=== PATIENT | female | born 1940 | race Caucasian/White ===

== ENCOUNTER 2016-12-05 09:10 | Outpatient (CLI) | payer MEDICARE | END 2016-12-05 09:11 | disposition home or self-care (01) | DX: R16.0 Hepatomegaly, not elsewhere classified (principal); K76.89 Other specified diseases of liver ==

== ENCOUNTER 2016-12-14 07:17 | Outpatient (CLI) | payer MEDICARE ==
[2016-12-14] MEDS ORDERED: GADOBUTROL 7.5 MMOL/7.5 ML VIAL IVP ONE (08:41)
== END 2016-12-14 07:18 | disposition home or self-care (01) ==
DX: R10.11 Right upper quadrant pain (principal); K76.89 Other specified diseases of liver
CPT/HCPCS: 36415; 74183; 82565; A9585

== ENCOUNTER 2017-04-16 14:40 | Emergency (ER) | payer MEDICARE ==
[2017-04-16 14:50] VITALS: BP 161/73
[2017-04-16 15:11] LABS: BILIRUBIN,URINE NEGATIVE (NEGATIVE)
[2017-04-16 15:12] LABS: UA w/ MICROSCOPIC CHARGE YES
[2017-04-16 15:16] LABS: UR CULTURE IF IND INDICATED; WBC,URINE >25 /HPF (0-5)
[2017-04-16] MEDS ORDERED: CIPROFLOXACIN 250 MG TABLET PO STA (15:33)
[2017-04-16] MEDS ORDERED: PHENAZOPYRIDINE 100 MG TABLET PO STA (15:33)
--- NOTE | 2017-04-16 15:36 | ED Physician Documentation ---
History of Present Illness - Stated complaint Stated Complaint: FEM - Chief complaint Chief Complaint: UTI - History obtained from History obtained from: Family (Patient is a 76-year-old female with a history of hypertension and a previous UTI who presents with a 2 day history of lower urinary symptoms including dysuria, hesitancy and frequency. She denies any fever and chills and has no complaint of abdominal or flank pain. She has not had any nausea, vomiting constipation or diarrhea. She otherwise feels well. Review of systems for pertinent positives and negatives history of present illness otherwise all other systems have been reviewed and are normal) - Additonal information Additional information: Patient is a 76-year-old female with a history of hypertension and a previous UTI who presents with a 2 day history of lower urinary symptoms including dysuria, hesitancy and frequency. She denies any fever and chills and has no complaint of abdominal or flank pain. She has not had any nausea, vomiting constipation or diarrhea. She otherwise feels well. Review of systems for pertinent positives and negatives history of present illness otherwise all other systems have been reviewed and are normal Review of Systems Ten Systems: 10 systems reviewed and negative Constitutional: denies: Fever, Chills PD PAST MEDICAL HISTORY - Past Medical History Cardiovascular: Hypertension Respiratory: None Endocrine/Autoimmune: None GI: None : None HEENT: Other Psych: None Musculoskeletal: None Derm: None - Past Surgical History Past Surgical History: Yes General: Colonoscopy HEENT: Tonsil/Adenoidectomy, Other - Present Medications Home Medications: Ambulatory Orders Medication Instructions Recorded Confirmed Atenolol 50 mg PO QPM 01/07/15 07/31/15 Aspirin [Aspir 81] 81 mg PO 07/31/15 07/31/15 Finasteride 5 mg PO DAILY 07/31/15 07/31/15 Ciprofloxacin HCl [Cipro] 250 mg PO BID #14 tablet 04/16/17 Phenazopyridine HCl [Pyridium] 200 mg PO TID #9 tablet 04/16/17 - Allergies Allergies/Adverse Reactions: Allergies Allergy/AdvReac Type Severity Reaction Status Date / Time No Known Drug Allergies Allergy Unverified 04/16/17 14:49 - Social History Does the pt smoke?: No Smoking Status: Never smoker Does the pt drink ETOH?: Yes Does the pt have substance abuse?: No - Immunizations Immunizations are current?: Yes - POLST Patient has POLST: No PD ED PE NORMAL - General General: Alert and oriented X 3, No acute distress, Well developed/nourished, Other - HEENT HEENT: Atraumatic, PERRL, EOMI - Neck Neck: Supple, no meningeal sign - Cardiac Cardiac: RRR, No murmur, No gallop - Respiratory Respiratory: No respiratory distress, Clear bilaterally - Abdomen Abdomen: Normal bowel sounds, Soft, Non tender, Non distended - Back Back: No CVA TTP - Derm Derm: Normal color, Warm and dry, No rash - Neuro Neuro: Alert and oriented X 3 Results - Vitals Vitals: Vital Signs - 24 hr 04/16/17 14:48 Temperature 37 C Heart Rate 71 Respiratory 16 Rate Blood Pressure 161/73 H O2 Saturation 98 Oxygen O2 Source Room air - Labs Labs: Laboratory Tests 04/16/17 14:51 Urine Color YELLOW Urine Clarity CLOUDY Urine pH 6.0 Ur Specific [place] 1.025 Urine Protein 100 H Urine Glucose (UA) NEGATIVE Urine Ketones NEGATIVE Urine Occult Blood LARGE H Urine Nitrite NEGATIVE Urine Bilirubin NEGATIVE Urine Urobilinogen 0.2 (NORMAL) Ur Leukocyte Esterase MODERATE H Urine RBC 6-10 H Urine WBC >25 H Ur Squamous Epith Cells RARE Squamous Urine Bacteria Rare Urine Mucus Few Strands Ur Microscopic Review INDICATED Urine Culture Comments INDICATED PD MEDICAL DECISION MAKING - ED course ED course: This patient is a 76-year-old female who presents with a complaint of lower urinary symptoms for 2 days. She has no fever, chills, nausea vomiting or abdominal pain. On examination she is well-appearing older woman who does not look sick or ill she has a soft nontender abdomen and stable vital signs. Urine was checked and is consistent with a lower urinary tract infection. Clinically this patient looks well. I think oral outpatient therapy is appropriate I will put her on a lower dose of ciprofloxacin and Pyridium and have her watch her symptoms closely, increase fluids, and return if worse. Disposition: To home Clinical impression: 1. Lower urinary tract infection Departure - Departure Disposition: , Self Care Clinical Impression: Cystitis Urinary tract infection Qualifiers: Urinary tract infection type: acute cystitis Hematuria presence: with hematuria Qualified Code(s): N30.01 - Acute cystitis with hematuria Condition: Good Instructions: ED UTI Cystitis Female Follow-Up: Bernadette Peraza ARNP [Primary Care Provider] - Prescriptions: Ciprofloxacin HCl [Cipro] 250 mg PO BID #14 tablet Phenazopyridine HCl [Pyridium] 200 mg PO TID #9 tablet
[2017-04-16] MEDS ORDERED: CIPROFLOXACIN 250 MG TABLET PO ONE (15:48)
[2017-04-16] MEDS ORDERED: PHENAZOPYRIDINE 100 MG TABLET PO ONE (15:48)
== END 2017-04-16 15:56 | disposition home or self-care (01) ==
LOC: ED 14:40
DX: N30.01 Acute cystitis with hematuria (principal); I10 Essential (primary) hypertension; Z79.82 Long term (current) use of aspirin
CPT/HCPCS: 81001; 87086; 99283; A9270; 81003

== ENCOUNTER 2017-07-22 08:26 | Outpatient (CLI) | payer MEDICARE ==
--- NOTE | 2017-07-23 13:08 | Mammography Report ---
DIGITAL SCREENING MAMMOGRAM: 07/22/2017 CLINICAL INDICATION: A 77-year-old, for screening. COMPARISON: 07/2015, 05/2014, 04/2013, 03/2012, 02/2011, 01/2010. TECHNIQUE: Routine CC and MLO projections were obtained of the breasts. Bilateral laterally exaggera eduardo craniocaudal views. FINDINGS: The breasts again demonstrate heterogeneously dense fibroglandular parenchyma bilaterally. Punctate, typically benign calcifications are present. No suspicious masses, clustered microcalcific ations, or regions of architectural distortion are identified. IMPRESSION: BENIGN FINDINGS. RECOMMENDATION: ROUTINE ANNUAL SCREENING UNLESS OTHERWISE CLINICALLY INDICATED. BIRADS CATEGORY 2-BENIGN FINDINGS. STANDARD QUALIFYING STATEMENTS 1. This examination was reviewed with the aid of Computer-Aided Detection (CAD). 2. A negative or benign imaging report should not delay biopsy if clinically suspicious findings are present. Consider surgical consultation if warranted. More than 5% of cancers are not identified by i maging. 3. Dense breasts may obscure an underlying neoplasm. JOB #: [id number] EXT JOB #:[id number]
== END 2017-07-22 08:27 | disposition home or self-care (01) ==
LOC: DI 08:26
PROVIDERS: ATTEND Registered Nurse
DX: Z12.31 Encounter for screening mammogram for malignant neoplasm of breast (principal)
CPT/HCPCS: 77067

== ENCOUNTER 2017-07-22 09:14 | Outpatient (CLI) | payer MEDICARE ==
--- NOTE | 2017-07-22 12:02 | DEXA Report ---
DEXA SCAN: 07/22/2017 CLINICAL INDICATION: Postmenopausal. TECHNIQUE: Dual energy x-ray absorptiometry (DXA) was performed on a [employer] system. Regions measured are the AP spine, femoral neck, and, if needed, forearm. COMPARISON: None. In accordance with the International Society for Clinical Densitometry (ISCD) guidelines, data from previous exams may be reanalyzed using current recommendations and techniques. This is done to allow a more accurate basis for comparison with the current study. FINDINGS The data for the lumbar spine is as follows: REGION BMD (g/cm/cm) T-SCORE Z-SCORE L1 0.825 -2.5 -0.7 L2 0.958 -2.0 -0.2 L3 1.011 -1.6 0.3 L4 1.023 -1.5 0.4 TOTAL 0.966 -1.8 0.1 NOTE: All evaluable vertebrae are used for classification. The data for the hip is as follows: REGION BMD (g/cm/cm) T-SCORE Z-SCORE Neck 0.805 -1.7 0.4 TOTAL 0.810 -1.6 0.4 NOTE: The femoral neck or total proximal femur, whichever is lowest, is used for classification. IMPRESSION: THE WHO CLASSIFICATION BASED ON THE INTERNATIONAL REFERENCE STANDARD IS OSTEOPENIA. THE FRACTURE RISK IS INCREASED. RECOMMENDATION: Patients with diagnosis of osteoporosis or osteopenia should have regular bone mineral density assessment. For those eligible for Medicare, routine testing is allowed once every 2 years. Testing frequency can be increased for patients who have rapidly progressing disease or for those who are receiving medical therapy to restore bone mass. COMMENT: World Health Organization (WHO) definitions for osteoporosis and osteopenia: NORMAL BMD: T-score at -1.0 or higher, fracture risk is low. OSTEOPENIA BMD: T-score between -1.0 and -2.5, fracture risk is increased. OSTEOPOROSIS BMD: T-score at -2.5 or lower, fracture risk high. National Osteoporosis Foundation recommends: 1. Obtain adequate dietary calcium (at least 1200 mg per day) and vitamin D (400 -800 international units per day). 2. Participate, as appropriate, in regular weightbearing and muscle- strengthening exercise. 3. Avoid tobacco use and reduce alcohol and caffeine intake. 4. For more detailed information see the website at www.NOF.org. MTDD
== END 2017-07-22 09:15 | disposition home or self-care (01) ==
LOC: DI 09:14
PROVIDERS: ATTEND Registered Nurse
DX: M85.89 Other specified disorders of bone density and structure, multiple sites (principal)
CPT/HCPCS: 77080

== ENCOUNTER 2017-08-25 09:11 | Outpatient (CLI) | payer MEDICARE ==
--- NOTE | 2017-08-25 13:10 | Ultrasound Report ---
COMPLETE ABDOMINAL ULTRASOUND: 08/25/2017 CLINICAL INDICATION: Liver lesion. COMPARISON: 12/05/2016, MRI of 12/14/2016. TECHNIQUE: Real-time scanning was performed with medical device sales representative static images obtained. FINDINGS: The liver measures 15 cm. Hepatic echogenicity is heterogeneous. Multiple cysts are again seen. The lesion in the posterior right lobe of the liver has not changed significantly in size, now measuring 3.1 x 2.8 x 2.6 cm (previously 3.3 x 2.6 x 2.4 cm). No new solid liver lesion is identified . The common bile duct measures 8 mm. The gallbladder is unremarkable. The visualized pancreas is nor mal. The spleen measures 9 cm, and demonstrates normal echotexture. The kidneys are normal, with the right measuring 9.2 cm, and the left measuring 10.1 cm. The abdominal aorta is normal in caliber. The inferior vena cava is unremarkable. No free fluid is present. IMPRESSION: STABLE LESION IN THE RIGHT LOBE OF THE LIVER. NO NEW SOLID HEPATIC LESION IS PRESENT. JOB #: [id number] EXT JOB #:[id number]
== END 2017-08-25 09:12 | disposition home or self-care (01) ==
LOC: DI 09:11
PROVIDERS: ATTEND Internal Medicine Gastroenterology
DX: K76.9 Liver disease, unspecified (principal)
CPT/HCPCS: 76700

== ENCOUNTER 2018-10-20 16:52 | Outpatient (CLI) | payer MEDICARE ==
--- NOTE | 2018-10-21 11:13 | Ultrasound Report ---
Reason: LIVER LESION Procedure Date: 10/20/2018 Accession Number: [id number] / [id number] Procedure: US - Abdomen Complete CPT Code: FULL RESULT: EXAM: ABDOMEN ULTRASOUND EXAM DATE: 10/20/2018 05:13 PM. CLINICAL HISTORY: Liver lesion. COMPARISON: Abdomen complete 08/25/2017 10:38 AM. Abdomen/liver w/wo 12/14/2016 7:44 AM. TECHNIQUE: Real-time scanning was performed with static images obtained. FINDINGS: Liver: Coarse liver echotexture background. The septated left lobe of the liver lesion consistent with a septated cyst measuring 2.6 x 2.9 x 2.1 cm is again demonstrated. Scattered small cysts previously seen also noted. The known indeterminate solid right hepatic dome mass measures 2.7 x 3.2 cm (up to 3 cm on prior ultrasound and 3.2 cm on prior MRI) and is heterogeneous and echogenic by ultrasound. Right lobe of the liver measures at least 14 cm. Main portal vein flow: Hepatopetal. Gallbladder: Normal. No stones, wall thickening, or sonographic Ibarra's sign. Biliary System: Common bile duct measures 6 mm. No intrahepatic or extrahepatic ductal dilatation. Pancreas: Visualized portion is unremarkable. Kidneys: Right: 9.6 cm longitudinally. Normal. No contour-deforming mass, stones, or hydronephrosis. Left: 10.3 cm longitudinally. Normal. No contour-deforming mass, stones, or hydronephrosis. Spleen: 8.5 cm. Normal in size and echotexture. Aorta and Inferior Vena Cava: Unremarkable. Other: None. 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 Indeterminate. Redemonstration of liver cysts, felt to be benign. RADIA
== END 2018-10-20 16:53 | disposition home or self-care (01) ==
LOC: DI 16:52
PROVIDERS: ATTEND Internal Medicine Gastroenterology
DX: K76.9 Liver disease, unspecified (principal); K76.89 Other specified diseases of liver
CPT/HCPCS: 76700

== ENCOUNTER 2018-10-24 12:25 | Outpatient (CLI) | payer MEDICARE ==
[2018-10-24 19:12] LABS: ALBUMIN 4.1 g/dL (3.2-5.5); BILIRUBIN,DIRECT 0.1 mg/dL (0.1-0.5); BILIRUBIN,TOTAL 0.7 mg/dL (0.2-1.0); TOTAL PROTEIN 6.1 g/dL (6.7-8.2)
== END 2018-10-24 12:26 | disposition home or self-care (01) ==
LOC: LAB.F 12:25
PROVIDERS: ATTEND Internal Medicine Gastroenterology
DX: K76.9 Liver disease, unspecified (principal)
CPT/HCPCS: 36415; 80076

== ENCOUNTER 2019-05-17 07:00 | Emergency (ER) | payer MEDICARE ==
[2019-05-17 07:08] VITALS: BP 157/82
--- NOTE | 2019-05-17 07:10 | ED Physician Documentation ---
History of Present Illness - Stated complaint Stated Complaint: FEMALE - Chief complaint Chief Complaint: UTI - History obtained from History obtained from: Patient - History of Present Illness Timing: Yesterday - Additonal information Additional information: Patient is a 78-year-old female presenting with concern for recurrence of UTI that began last night. Patient reports dysuria, frequency, urgency, and incomplete emptying. Patient denies vomiting, abdominal pain, back pain, fever, or other complaints. Patient does have history of bowel incontinence which happened several days ago and she believes this was likely the cause of her new UTI symptoms. No other improving or worsening factors noted. Review of Systems Constitutional: denies: Fever GI: denies: Abdominal Pain, Nausea, Vomiting, Constipation, Diarrhea : reports: Dysuria, Frequency, Hesitancy, Unable to Void. denies: Hematuria Musculoskeletal: denies: Back pain PD PAST MEDICAL HISTORY - Past Medical History Past Medical History: Yes Cardiovascular: Hypertension Respiratory: None Endocrine/Autoimmune: None GI: None : None HEENT: Other Psych: None Musculoskeletal: None Derm: None - Past Surgical History Past Surgical History: Yes General: Colonoscopy HEENT: Tonsil/Adenoidectomy, Other - Present Medications Home Medications: Ambulatory Orders Medication Instructions Recorded Confirmed Atenolol 50 mg PO QPM 01/07/15 07/31/15 Aspirin [Aspir 81] 81 mg PO 07/31/15 07/31/15 Finasteride 5 mg PO DAILY 07/31/15 07/31/15 Ciprofloxacin HCl [Cipro] 250 mg PO BID #14 tablet 04/16/17 Phenazopyridine HCl [Pyridium] 200 mg PO TID #9 tablet 04/16/17 Ciprofloxacin HCl [Cipro] 500 mg PO BID #14 tablet 05/17/19 Phenazopyridine HCl [Pyridium] 200 mg PO TID PRN #6 tablet 05/17/19 - Allergies Allergies/Adverse Reactions: Allergies Allergy/AdvReac Type Severity Reaction Status Date / Time No Known Drug Allergies Allergy Verified 05/17/19 07:08 - Social History Does the pt smoke?: No Smoking Status: Never smoker Does the pt drink ETOH?: Yes Does the pt have substance abuse?: No - Immunizations Immunizations are current?: Yes - POLST Patient has POLST: No PD ED PE NORMAL - Vitals Vital signs reviewed: Yes - General General: Alert and oriented X 3, No acute distress, Well developed/nourished - HEENT HEENT: Atraumatic, Moist mucous membranes - Neck Neck: Supple, no meningeal sign - Respiratory Respiratory: No respiratory distress - Abdomen Abdomen: Soft, Non tender, Non distended - Back Back: No CVA TTP - Derm Derm: Normal color, Warm and dry, No rash - Extremities Extremities: No tenderness to palpate - Neuro Neuro: Alert and oriented X 3, No motor deficit, No sensory deficit - Psych Psych: Normal mood, Normal affect Results - Vitals Vitals: Vital Signs - 24 hr 05/17/19 07:07 Temperature 36 C L Heart Rate 66 Respiratory 16 Rate Blood Pressure 157/82 H O2 Saturation 97 Oxygen O2 Source Room air - Labs Labs: Laboratory Tests 05/17/19 07:20 Urine Color YELLOW Urine Clarity SL Urine pH 6.0 Ur Specific [place] 1.015 Urine Protein 30 H Urine Glucose (UA) NEGATIVE Urine Ketones NEGATIVE Urine Occult Blood LARGE H Urine Nitrite NEGATIVE Urine Bilirubin NEGATIVE Urine Urobilinogen 0.2 (NORMAL) Ur Leukocyte Esterase MODERATE H Ur Microscopic Review INDICATED Urine Culture Comments Not Reportable PD MEDICAL DECISION MAKING - ED course Complexity details: reviewed results, considered differential, d/w patient ED course: Patient presenting with likely uncomplicated UTI. Have low suspicion for other intra-abdominal pathology including ovarian or other pelvic pathology, diverticulitis, bowel obstruction, AAA or otherwise, but considered. Also have lower suspicion for nephrolithiasis or pyelonephritis at this time. No signs of systemic illness or sepsis. Urinalysis reflected infection and feel patient appropriate to treat with oral antibiotics. Discussed use of medications, or precautions, appropriate follow-up, and other supportive cares. Patient voiced understanding and is comfortable with discharge plan. Departure - Departure Disposition: 01 Home, Self Care Clinical Impression: Urinary tract infection Qualifiers: Urinary tract infection type: site unspecified Hematuria presence: without hematuria Qualified Code(s): N39.0 - Urinary tract infection, site not specified Condition: Good Instructions: ED UTI Cystitis Female Follow-Up: Bernadette Peraza ARNP [Primary Care Provider] - Within 3 Days Prescriptions: Ciprofloxacin HCl [Cipro] 500 mg PO BID #14 tablet Phenazopyridine HCl [Pyridium] 200 mg PO TID PRN #6 tablet PRN Reason: dysuria Comments: Please continue home medications as previously instructed. May use ciprofloxacin and Pyridium as instructed to treat bladder infection. Recommend hydration, healthy diet, and follow-up with your primary care physician in next 2 to 3 days. Return to ED sooner if experience worsening symptoms or other concerns.
[2019-05-17 07:48] LABS: BILIRUBIN,URINE NEGATIVE (NEGATIVE); GLUCOSE, URINE (UA) NEGATIVE (NEGATIVE); KETONES,URINE (UA) NEGATIVE (NEGATIVE); LEUKOCYTE ESTERASE, URINE MODERATE (NEGATIVE); NITRITE,URINE NEGATIVE (NEGATIVE); OCCULT BLOOD,URINE LARGE (NEGATIVE); PROTEIN,URINE 30 mg/dL (NEGATIVE); UROBILINOGEN,URINE 0.2 (NORMAL) E.U./dL (NORMAL)
[2019-05-17 07:54] LABS: CLARITY,URINE SL (CLEAR)
[2019-05-17 07:58] LABS: BACTERIA,URINE Rare /HPF (None Seen); SQUAMOUS EPITHELIAL CELL,UR NONE SEEN (<= Few); WBC CLUMPS,URINE PRESENT
== END 2019-05-17 08:03 | disposition home or self-care (01) ==
LOC: ED 07:00
DX: N39.0 Urinary tract infection, site not specified (principal); I10 Essential (primary) hypertension
CPT/HCPCS: 81001; 81003; 87086; 87181; 99283

== ENCOUNTER 2019-05-20 19:42 | Emergency (ER) | payer MEDICARE ==
--- NOTE | 2019-05-20 20:26 | ED Physician Documentation ---
PD HPI UPPER EXT INJURY - Stated complaint Stated Complaint: RT WRIST INJ - Chief complaint Chief Complaint: Ext Problem - History obtained from History obtained from: Patient - History of Present Illness Location: Left, Wrist Type of injury: Fall Where injury occurred: Home Timing - onset: How many hours ago (1) Timing - duration: Hours (1) Timing - details: Abrupt onset Improved by: Rest, Ice Associated symptoms: Swelling. No: Weakness, Numbness, Tingling, Discolored Similar symptoms before: Has not had sx before Recently seen: Not recently seen - Additonal information Additional information: This is an 79-year-old R-handed woman who presents with complaints that she was at a family gathering and she was walking backwards tripped over a stump and fell landing on her outstretched left right wrist. The injury occurred about 45 minutes prior to presentation. She denies other injury she did not hit her head or pass out. She did take 2 Advil for the pain. Denies numbness or tingling into the wrist and no prior injury to that wrist. Review of Systems Musculoskeletal: reports: Extremity pain, Joint pain, Joint swelling. denies: Back pain Neurologic: denies: Head injury, LOC PD PAST MEDICAL HISTORY - Past Medical History Cardiovascular: Hypertension Respiratory: None Endocrine/Autoimmune: None GI: None : None HEENT: Other Psych: None Musculoskeletal: None Derm: None - Past Surgical History Past Surgical History: Yes General: Colonoscopy HEENT: Tonsil/Adenoidectomy, Other - Present Medications Home Medications: Ambulatory Orders Medication Instructions Recorded Confirmed Atenolol 50 mg PO QPM 01/07/15 07/31/15 Aspirin [Aspir 81] 81 mg PO 07/31/15 07/31/15 Finasteride 5 mg PO DAILY 07/31/15 07/31/15 Ciprofloxacin HCl [Cipro] 250 mg PO BID #14 tablet 04/16/17 Phenazopyridine HCl [Pyridium] 200 mg PO TID #9 tablet 04/16/17 Ciprofloxacin HCl [Cipro] 500 mg PO BID #14 tablet 05/17/19 Phenazopyridine HCl [Pyridium] 200 mg PO TID PRN #6 tablet 05/17/19 Hydrocodone/Acetaminophen 1 - 2 each PO Q6H PRN #10 tablet 05/20/19 [Hydrocodon-Acetaminophen 5-325] - Allergies Allergies/Adverse Reactions: Allergies Allergy/AdvReac Type Severity Reaction Status Date / Time No Known Drug Allergies Allergy Verified 05/20/19 19:52 - Social History Does the pt smoke?: No Smoking Status: Never smoker Does the pt drink ETOH?: Yes Does the pt have substance abuse?: No - Immunizations Immunizations are current?: Yes - POLST Patient has POLST: No PD ED PE NORMAL - Vitals Vital signs reviewed: Yes - General General: Alert and oriented X 3, No acute distress, Well developed/nourished - HEENT HEENT: Atraumatic - Respiratory Respiratory: No respiratory distress - Derm Derm: Normal color, Warm and dry - Extremities Extremities: Other (The right wrist is swollen and appears deformed. There is tenderness over the distal radius. She is a 2+ radial pulse. She is able to make a fist and Abduct the pinky and thumb. Sensation is intact to light touch and there is less than 2-second capillary refill.) - Neuro Neuro: Alert and oriented X 3, No motor deficit, No sensory deficit, Normal speech - Psych Psych: Normal mood, Normal affect Results - Vitals Vitals: Vital Signs - 24 hr 05/20/19 19:51 Temperature 36.6 C Heart Rate 69 Respiratory 18 Rate Blood Pressure 178/89 H O2 Saturation 100 Oxygen O2 Source Room air - Rads (name of study) r wrist Radiology: EMP read indepedently (Intra-articular comminuted dist radius fracture), EMP read contemporaneously PD MEDICAL DECISION MAKING - ED course Complexity details: reviewed results, d/w patient, d/w family ED course: Patient has a comminuted intra-articular distal radius fracture. I did not feel that given the appearance of the the images any attempt at reduction here would be of any value. She does not have a local orthopedist and is referred to the orthopedist on-call Dr. Wallace. She should contact his office on Wednesday. The patient was provided a prepack of hydrocodone tablets and a prescription for 10 pills. Instructed on ice and elevation. Departure - Departure Disposition: 01 Home, Self Care Clinical Impression: Colles' fracture Qualifiers: Encounter type: initial encounter Fracture type: closed Laterality: right Qualified Code(s): S52.531A - Colles' fracture of right radius, initial encounter for closed fracture Condition: Good Instructions: ED Splint Care Plaster, ED RICE, ED Compartment Syndrome At Risk For Follow-Up: Stephen Wallace MD [Provider Admit Priv/Credential] - Bernadette Peraza ARNP [Primary Care Provider] - Prescriptions: Hydrocodone/Acetaminophen [Hydrocodon-Acetaminophen 5-325] 1 - 2 each PO Q6H PRN #10 tablet PRN Reason: pain Comments: Leave the splint in place and keep it clean and dry. Keep the arm elevated and ice on the back of the wrist as tolerated. May take ibuprofen [id number] and use hydrocodone if needed for pain. Contact Dr. Wallace's office on Wednesday to arrange for follow-up appointment. Return to the emergency department if you are experiencing symptoms of numbness to the fingers, increasing pain in the fingers or other problems arise.
--- NOTE | 2019-05-20 20:37 | XRAY Report ---
Reason: GLF, pain Procedure Date: 05/20/2019 Accession Number: [id number] / [id number] Procedure: XR - Wrist 4 View RT CPT Code: FULL RESULT: EXAM: RIGHT WRIST RADIOGRAPHY. EXAM DATE: 05/20/2019 08:14 PM. CLINICAL HISTORY: Ground level fall, pain. COMPARISON: None. TECHNIQUE: 3 views. FINDINGS: Bones: Mildly impacted transverse radial metaphyseal fracture. The distal ulna and carpal bones are intact. Joints: Normal. No subluxations. Soft Tissues: Normal. No soft tissue swelling. IMPRESSION: Mildly impacted transverse distal radial metaphyseal fracture. RADIA
[2019-05-20] MEDS ORDERED: HYDROcod/ACET 5/325 Prepack 4 PO STA (20:42)
[2019-05-20 21:19] VITALS: BP 152/73
--- NOTE | 2019-05-31 12:47 | ED Physician Documentation ---
ED Addendum - Addendum Addendum: 05/31/19 12:45 Plaster volar wrist splint was applied by nuclear fuel processing technician and patient was able to wiggle fingers, sensation intact and less than 2 second cap refill verified by me post splint application.
== END 2019-05-20 21:20 | disposition home or self-care (01) ==
LOC: ED 19:42
DX: S52.531A Colles' fracture of right radius, initial encounter for closed fracture (principal); W01.0XXA Fall on same level from slipping, tripping and stumbling without subsequent striking against object, initial encounter; Y93.01 Activity, walking, marching and hiking; I10 Essential (primary) hypertension
CPT/HCPCS: 29125; 99283; 99284

== ENCOUNTER 2019-11-02 11:15 | Outpatient (CLI) | payer MEDICARE ==
--- NOTE | 2019-11-06 12:10 | Mammography Report ---
Reason: ROUTINE MAMMO Procedure Date: 11/02/2019 Accession Number: [id number] / [id number] Procedure: REBEK[facility] - Screening Mammo Dig Bilat CPT Code: Final Report FULL RESULT: EXAM: Screening Mammo Dig Bilat DATE: 11/02/2019 11:42 AM CLINICAL HISTORY: Screening encounter. TECHNIQUE: (B) - Bilateral CC, laterally exaggerated CC, MLO views were obtained. COMPARISON: 07/22/2017 through 01/20/2010. PARENCHYMAL PATTERN: (D) - The breast(s) demonstrate(s) heterogeneously dense fibroglandular parenchyma. FINDINGS: There are no suspicious masses, calcifications, or areas of distortion. IMPRESSION: Negative examination. BI-RADS category 1. RECOMMENDATION: (ANNUAL) - Recommend routine annual screening mammography. BI-RADS CATEGORY: (1) - Negative. STANDARD QUALIFYING STATEMENTS: 1. This examination was not reviewed with the aid of Computer-Aided Detection (CAD). 2. A negative or benign imaging report should not preclude biopsy if clinically suspicious findings are present. 3. Dense breasts may obscure an underlying neoplasm. 4. This examination was reviewed without the aid of 3D breast imaging (tomosynthesis).
== END 2019-11-02 11:16 | disposition home or self-care (01) ==
LOC: DI 11:15
PROVIDERS: ATTEND Registered Nurse
DX: Z12.31 Encounter for screening mammogram for malignant neoplasm of breast (principal)
CPT/HCPCS: 77067

== ENCOUNTER 2019-11-02 11:15 | Outpatient (CLI) | payer MEDICARE ==
--- NOTE | 2019-11-09 09:20 | DEXA Report ---
Reason: POSTMENOPAUSAL Procedure Date: 11/02/2019 Accession Number: [id number] / [id number] Procedure: DEX - Dexa Spine and/or Hip CPT Code: Final Report FULL RESULT: EXAM: Dexa Spine and/or Hip DATE: 11/02/2019 11:52 AM CLINICAL HISTORY: POSTMENOPAUSAL TECHNIQUE: Dual energy x-ray absorptiometry (DXA) was performed on a [employer] System. Regions measured are the AP Spine, femoral neck, and if needed forearm. COMPARISON: 07/22/2017. In accordance with the International Society for Clinical Densitometry (ISCD) guidelines, data from previous exams may be reanalyzed using current recommendations and techniques. This is done to allow a more accurate basis for comparison with the current study. FINDINGS: The data for the lumbar spine is as follows: BMD (g/cm/cm) T-SCORE Z-SCORE REGION L1 0.855 -2.3 -0.4 L2 0.971 -1.9 0.0 L3 1.020 -1.5 0.4 L4 0.954 -2.0 -0.1 TOTAL 0.955 -1.9 0.0 NOTE: All evaluable vertebrae are used for classification The data for the hip is as follows: BMD (g/cm/cm) T-SCORE Z-SCORE REGION Neck 0.736 -2.2 0.0 TOTAL 0.821 -1.5 0.6 NOTE: The femoral neck or total proximal femur, whichever is lowest, is used for classification. DXA RESULTS SUMMARY: Spine SCAN DATE AGE BMD CHANGE VS CHANGE VS PREVIOUS PREVIOUS % [birth year]02/2019 [age] 0.955 -0.011 -1.1 07/22/2017 [age] 0[age]966 * Denotes significant change at the 95% confidence level. Denotes dissimilar scan types or analysis methods. DXA RESULTS SUMMARY: Hip SCAN DATE AGE BMD CHANGE VS CHANGE VS PREVIOUS PREVIOUS % [birth year]/2019 79.4 0.821 0.011 1.4 07/22/2017 77.1 0.810 * Denotes significant change at the 95% confidence level. Denotes dissimilar scan types or analysis methods. IMPRESSION: THE WHO CLASSIFICATION BASED ON THE INTERNATIONAL REFERENCE STANDARD IS OSTEOPENIA. THE FRACTURE RISK IS INCREASED. RECOMMENDATION: Patients with diagnosis of osteoporosis or osteopenia should have regular bone mineral density assessment. For those eligible for Medicare, routine testing is allowed once every 2 years. Testing frequency can be increased for patients who have rapidly progressing disease or for those who are receiving medical therapy to restore bone mass. COMMENT: World Health Organization (WHO) definitions for osteoporosis and osteopenia: NORMAL BMD: T-score at -1.0 or higher, fracture risk is low OSTEOPENIA BMD: T-score between -1.0 and -2.5, fracture risk is increased. OSTEOPOROSIS BMD: T-score at -2.5 or lower, fracture risk is high. National Osteoporosis Foundation recommends: 1. Obtain adequate dietary calcium (at least 1200 mg per day) and vitamin D (400-800 international units per day). 2. Participate, as appropriate, in regular weightbearing and muscle-strengthening exercise. 3. Avoid tobacco use and reduce alcohol and caffeine intake. 4. For more detailed information see the website at www.NOF.org.
== END 2019-11-02 11:16 | disposition home or self-care (01) ==
LOC: DI 11:15
PROVIDERS: ATTEND Registered Nurse
DX: M85.89 Other specified disorders of bone density and structure, multiple sites (principal)
CPT/HCPCS: 77080

== ENCOUNTER 2020-03-20 08:00 | Outpatient (CLI) | payer MEDICARE | END 2020-03-20 23:59 | disposition home or self-care (01) | LOC: LAB.S 08:00 | PROVIDERS: ATTEND Internal Medicine | DX: R30.0 Dysuria (principal) | CPT/HCPCS: 81002 ==

== ENCOUNTER 2020-06-20 09:34 | Outpatient (CLI) | payer MEDICARE ==
[2020-06-20 15:24] LABS: BASOPHILS # (AUTO) 0.1 10^3/uL (0.0-0.1); EOSINOPHILS # (AUTO) 0.1 10^3/uL (0.0-0.7); EOSINOPHILS % (AUTO) 2.4 %; HGB - HEMOGLOBIN 13.2 g/dL (12.0-16.0); LYMPHOCYTES # (AUTO) 1.9 10^3/uL (1.5-3.5); LYMPHOCYTES % (AUTO) 32.5 %; MEAN CORPUSCULAR HEMOGLOBIN 30.2 pg (27.0-31.0); MEAN CORPUSCULAR HGB CONC 32.2 g/dL (32.0-36.0); MEAN CORPUSCULAR VOLUME 93.8 fL (81.0-99.0); MEAN PLATELET VOLUME 11.3 fL (7.9-10.8); MONOCYTES # (AUTO) 0.6 10^3/uL (0.0-1.0); MONOCYTES % (AUTO) 9.8 %; NEUTROPHILS # (AUTO) 3.1 10^3/uL (1.5-6.6); NEUTROPHILS % (AUTO) 54.3 %; PLT - PLATELET COUNT 231 10^3/uL (130-450); RED BLOOD COUNT 4.37 10^6/uL (4.20-5.40); RED CELL DISTRIBUTION WIDTH 13.9 % (12.0-15.0); WHITE BLOOD COUNT 5.7 x10^3/uL (4.8-10.8)
[2020-06-20 15:54] LABS: ALBUMIN 4.3 g/dL (3.2-5.5); ALBUMIN/GLOBULIN RATIO 2.2 (1.0-2.2); ALKALINE PHOSPHATASE 59 IU/L (42-121); ALT ALANINE AMINOTRANSFERASE 17 IU/L (10-60); AST ASPARTATE AMINOTRANSFERASE 20 IU/L (10-42); BILIRUBIN,TOTAL 0.9 mg/dL (0.2-1.0); BUN - BLOOD UREA NITROGEN 25 mg/dL (6-20); CARBON DIOXIDE - CO2 31 mmol/L (21-32); CHLORIDE 103 mmol/L (101-111); CHOL/HDL RATIO 3.1 (<4.4); CHOLESTEROL 232 mg/dL; CREATININE 0.8 mg/dL (0.4-1.0); GLUCOSE 83 mg/dL (70-100); HDL CHOLESTEROL 76 mg/dL; LDL CHOLESTEROL,CALCULATED 146 mg/dL; LDL/HDL RATIO 1.9 (<4.4); SODIUM 141 mmol/L (135-145); TOTAL PROTEIN 6.3 g/dL (6.7-8.2); VLDL CHOLESTEROL 10 mg/dL
== END 2020-06-20 09:35 | disposition home or self-care (01) ==
LOC: LAB.S 09:34
PROVIDERS: ATTEND Registered Nurse
DX: I10 Essential (primary) hypertension (principal)
CPT/HCPCS: 36415; 80053; 80061; 83721; 84443; 85025

== ENCOUNTER 2020-11-25 08:00 | Outpatient (CLI) | payer MEDICARE | END 2020-11-25 23:59 | disposition home or self-care (01) | LOC: LAB.R 08:00 | PROVIDERS: ATTEND Registered Nurse | DX: R30.0 Dysuria (principal) | CPT/HCPCS: 81002; 87086 ==

== ENCOUNTER 2021-06-23 09:44 | Outpatient (CLI) | payer MEDICARE ==
[2021-06-23 14:19] LABS: BASOPHILS % (AUTO) 0.7 %; EOSINOPHILS # (AUTO) 0.2 10^3/uL (0.0-0.7); HCT - HEMATOCRIT 40.8 % (37.0-47.0); HGB - HEMOGLOBIN 12.6 g/dL (12.0-16.0); LYMPHOCYTES # (AUTO) 1.8 10^3/uL (1.5-3.5); LYMPHOCYTES % (AUTO) 29.4 %; MEAN CORPUSCULAR HEMOGLOBIN 29.2 pg (27.0-31.0); MEAN CORPUSCULAR HGB CONC 30.9 g/dL (32.0-36.0); MEAN CORPUSCULAR VOLUME 94.7 fL (81.0-99.0); MEAN PLATELET VOLUME 11.1 fL (7.9-10.8); MONOCYTES # (AUTO) 0.6 10^3/uL (0.0-1.0); MONOCYTES % (AUTO) 9.7 %; NEUTROPHILS # (AUTO) 3.4 10^3/uL (1.5-6.6); NEUTROPHILS % (AUTO) 55.9 %; PLT - PLATELET COUNT 253 10^3/uL (130-450); RED BLOOD COUNT 4.31 10^6/uL (4.20-5.40)
[2021-06-23 14:31] LABS: ALBUMIN 4.1 g/dL (3.2-5.5); ALBUMIN/GLOBULIN RATIO 2.2 (1.0-2.2); ALKALINE PHOSPHATASE 51 IU/L (42-121); ALT ALANINE AMINOTRANSFERASE 13 IU/L (10-60); AST ASPARTATE AMINOTRANSFERASE 18 IU/L (10-42); BILIRUBIN,TOTAL 0.6 mg/dL (0.2-1.0); BUN - BLOOD UREA NITROGEN 19 mg/dL (6-20); CALCIUM 9.1 mg/dL (8.5-10.3); CARBON DIOXIDE - CO2 29 mmol/L (21-32); CHLORIDE 104 mmol/L (101-111); CHOL/HDL RATIO 3.4 (<4.4); CHOLESTEROL 266 mg/dL; CREATININE 0.8 mg/dL (0.4-1.0); GFR - MDRD 69 (>89); GLUCOSE 81 mg/dL (70-100); HDL CHOLESTEROL 78 mg/dL; LDL CHOLESTEROL,CALCULATED 174 mg/dL; LDL/HDL RATIO 2.2 (<4.4); POTASSIUM 4.2 mmol/L (3.5-5.0); SODIUM 142 mmol/L (135-145); TRIGLYCERIDES 69 mg/dL; VLDL CHOLESTEROL 14 mg/dL
[2021-06-23 14:39] LABS: THYROID STIMULATING HORMONE 2.41 uIU/mL (0.34-5.60)
== END 2021-06-23 09:45 | disposition home or self-care (01) ==
LOC: LAB.S 09:44
PROVIDERS: ATTEND Registered Nurse
DX: K58.0 Irritable bowel syndrome with diarrhea (principal); I10 Essential (primary) hypertension; F51.04 Psychophysiologic insomnia
CPT/HCPCS: 36415; 80053; 80061; 83721; 84443; 85025

== ENCOUNTER 2022-03-22 16:50 | Emergency (ER) | payer MEDICARE ==
[2022-03-22 17:17] LABS: BASOPHILS # (AUTO) 0.1 10^3/uL (0.0-0.1); BASOPHILS % (AUTO) 0.8 %; EOSINOPHILS # (AUTO) 0.2 10^3/uL (0.0-0.7); EOSINOPHILS % (AUTO) 2.7 %; HCT - HEMATOCRIT 39.2 % (37.0-47.0); HGB - HEMOGLOBIN 12.7 g/dL (12.0-16.0); LYMPHOCYTES # (AUTO) 2.1 10^3/uL (1.5-3.5); MEAN CORPUSCULAR HEMOGLOBIN 30.2 pg (27.0-31.0); MEAN CORPUSCULAR HGB CONC 32.4 g/dL (32.0-36.0); MEAN CORPUSCULAR VOLUME 93.1 fL (81.0-99.0); MEAN PLATELET VOLUME 10.1 fL (7.9-10.8); MONOCYTES # (AUTO) 0.7 10^3/uL (0.0-1.0); MONOCYTES % (AUTO) 9.1 %; NEUTROPHILS # (AUTO) 4.1 10^3/uL (1.5-6.6); NEUTROPHILS % (AUTO) 57.3 %; PLT - PLATELET COUNT 253 10^3/uL (130-450); RED BLOOD COUNT 4.21 10^6/uL (4.20-5.40); RED CELL DISTRIBUTION WIDTH 14.1 % (12.0-15.0); WHITE BLOOD COUNT 7.1 x10^3/uL (4.8-10.8)
[2022-03-22 17:29] LABS: CALCIUM 9.3 mg/dL (8.5-10.3); CREATININE 0.9 mg/dL (0.4-1.0); POTASSIUM 4.1 mmol/L (3.5-5.0)
--- NOTE | 2022-03-22 17:59 | ED Physician Documentation ---
History of Present Illness - Stated complaint Stated Complaint: SWEATY,JAW PX - Chief complaint Chief Complaint: General - History obtained from History obtained from: Patient - Additonal information Additional information: Very healthy 81-year-old woman went over to [facility] today in [place] and was eating a hamburger and developed bilateral lower jaw pain while chewing. It only lasted a few minutes and when she stopped eating the pain went away. Then she was driving back and remembered the jaw pain could be an anginal equivalent and she developed sweaty palms. That also has resolved. There was no chest pain or trouble breathing at any time. No inexplicable fatigue. Review of Systems Constitutional: denies: Fever, Chills Cardiac: denies: Chest pain / pressure, Palpitations Respiratory: denies: Dyspnea, Cough GI: denies: Abdominal Pain, Nausea PD PAST MEDICAL HISTORY - Past Medical History Cardiovascular: Hypertension Respiratory: None Endocrine/Autoimmune: None GI: None : None HEENT: Other Psych: None Musculoskeletal: None Derm: None - Past Surgical History Past Surgical History: Yes General: Colonoscopy HEENT: Tonsil/Adenoidectomy, Other - Present Medications Home Medications: Ambulatory Orders Medication Instructions Recorded Confirmed Atenolol 50 mg PO QPM 01/07/15 07/31/15 Aspirin [Aspir 81] 81 mg PO 07/31/15 07/31/15 Finasteride 5 mg PO DAILY 07/31/15 07/31/15 Ciprofloxacin HCl [Cipro] 250 mg PO BID #14 tablet 04/16/17 Phenazopyridine HCl [Pyridium] 200 mg PO TID #9 tablet 04/16/17 Ciprofloxacin HCl [Cipro] 500 mg PO BID #14 tablet 05/17/19 Phenazopyridine HCl [Pyridium] 200 mg PO TID PRN #6 tablet 05/17/19 Hydrocodone/Acetaminophen 1 - 2 each PO Q6H PRN #10 tablet 05/20/19 [Hydrocodon-Acetaminophen 5-325] - Allergies Allergies/Adverse Reactions: Allergies Allergy/AdvReac Type Severity Reaction Status Date / Time No Known Drug Allergies Allergy Verified 03/22/22 17:04 - Social History Does the pt smoke?: No Smoking Status: Never smoker Does the pt drink ETOH?: Yes Does the pt have substance abuse?: No - Immunizations Immunizations are current?: Yes - POLST Patient has POLST: No PD ED PE NORMAL - Vitals Vital signs reviewed: Yes - General General: Alert and oriented X 3, No acute distress - HEENT HEENT: Other (She has had a lot of dental work, but I do not see any tender teeth, swelling in the mouth, trismus, sublingual edema.) - Neck Neck: Supple, no meningeal sign, No bony TTP - Cardiac Cardiac: RRR, No murmur - Respiratory Respiratory: No respiratory distress, Clear bilaterally - Neuro Neuro: Alert and oriented X 3, Normal speech - Psych Psych: Normal mood, Normal affect Results - Vitals Vitals: Vital Signs - 24 hr 03/22/22 16:59 Temperature 36.7 C Heart Rate 77 Respiratory 16 Rate Blood Pressure 149/66 H O2 Saturation 98 Oxygen O2 Source Room air - EKG (time done) 1741 Rate: Rate (enter#) (74) Rhythm: NSR, LAE [place]: LAD Intervals: Normal IA QRS: Normal Ischemia: Non specific changes. No: ST elevation c/w ischemia Computer interpretation: Agree with computer - Labs Labs: Laboratory Tests 03/22/22 03/22/22 03/22/22 17:13 17:13 17:13 WBC 7.1 RBC 4.21 Hgb 12.7 Hct 39.2 MCV 93.1 MCH 30.2 MCHC 32.4 RDW 14.1 Plt Count 253 MPV 10.1 Neut # (Auto) 4.1 Lymph # (Auto) 2.1 [place] # (Auto) 0.7 Eos # (Auto) 0.2 Baso # (Auto) 0.1 Absolute Nucleated RBC 0.00 Nucleated RBC % 0.0 Sodium 142 Potassium 4.1 Chloride 103 Carbon Dioxide 31 Anion Gap 8.0 BUN 25 H Creatinine 0.9 Estimated GFR (MDRD) 60 L Glucose 162 H Calcium 9.3 Troponin I High Sens 4.2 PD MEDICAL DECISION MAKING - ED course ED course: 81-year-old woman presents concern for an anginal equivalent, but given the fact that she had jaw pain that was associated with chewing, pretest probability is quite low. No evidence of ischemia on EKG or biomarkers. Departure - Departure Disposition: 01 Home, Self Care Clinical Impression: Jaw pain Condition: Good Record reviewed to determine appropriate education?: Yes Instructions: ED Acute Pain [facility] Comments: There is no indication that the pain from your jaw was related to heart or other serious issue. Return for new or worsening symptoms. Follow-up with your primary care physician. If pain becomes recurrent also consider following up with your dentist.
[2022-03-22 18:01] VITALS: BP 122/65
== END 2022-03-22 18:02 | disposition home or self-care (01) ==
LOC: ED 16:50
DX: R68.84 Jaw pain (principal)
CPT/HCPCS: 36415; 80048; 84484; 85025; 93005; 99282; 99283

== ENCOUNTER 2022-11-02 11:17 | Outpatient (CLI) | payer MEDICARE ==
[2022-11-02 15:19] LABS: ALBUMIN/GLOBULIN RATIO 1.9 (1.0-2.2); BILIRUBIN,TOTAL 0.7 mg/dL (0.2-1.0); CALCIUM 9.3 mg/dL (8.5-10.3); CREATININE 0.8 mg/dL (0.4-1.0); POTASSIUM 4.3 mmol/L (3.5-5.0); TOTAL PROTEIN 6.1 g/dL (6.7-8.2)
== END 2022-11-02 11:18 | disposition home or self-care (01) ==
LOC: LAB.S 11:17
PROVIDERS: ATTEND Registered Nurse
DX: R59.9 Enlarged lymph nodes, unspecified (principal)
CPT/HCPCS: 36415; 80053

== ENCOUNTER 2022-11-10 12:01 | Outpatient (CLI) | payer MEDICARE ==
--- NOTE | 2022-11-10 16:10 | Ultrasound Report ---
PROCEDURE: Head or Neck Soft Tissue INDICATIONS: ENLARGED LYMPH NODES TECHNIQUE: Real time scanning was performed of the neck region of interest, with image documentation . COMPARISON: None. FINDINGS: Normal-appearing cervical lymph nodes in the left upper neck measure 5.4 mm, 11 x 4 mm, 10 x 3 mm with preserved fatty nancy IMPRESSION: Normal. Left sided cervical lymph nodes. If clinical concern persists, consider follow-up contrast CT neck Reviewed by: Joe Ferreira MD on 11/10/2022 3:08 PM [place] Approved by: Joe Ferreira MD on 11/10/2022 3:08 PM AKST Station ID: [id number]
== END 2022-11-10 12:02 | disposition home or self-care (01) ==
LOC: DI 12:01
PROVIDERS: ATTEND Registered Nurse
DX: R59.9 Enlarged lymph nodes, unspecified (principal)

== ENCOUNTER 2022-12-10 08:00 | Outpatient (CLI) | payer MEDICARE | END 2022-12-10 23:59 | disposition home or self-care (01) | LOC: LAB.F 08:00 | PROVIDERS: ATTEND Registered Nurse | DX: R19.7 Diarrhea, unspecified (principal) | CPT/HCPCS: 87045; 87046; 87427 ==

== ENCOUNTER 2024-02-03 10:19 | Outpatient (CLI) | payer MEDICARE ==
[2024-02-03 14:14] LABS: BASOPHILS # (AUTO) 0.1 10^3/uL (0.0-0.1); BASOPHILS % (AUTO) 0.9 %; EOSINOPHILS # (AUTO) 0.2 10^3/uL (0.0-0.7); HCT - HEMATOCRIT 39.1 % (37.0-47.0); HGB - HEMOGLOBIN 12.3 g/dL (12.0-16.0); LYMPHOCYTES # (AUTO) 1.6 10^3/uL (1.5-3.5); LYMPHOCYTES % (AUTO) 29.4 %; MEAN CORPUSCULAR HEMOGLOBIN 29.5 pg (27.0-31.0); MEAN CORPUSCULAR HGB CONC 31.5 g/dL (32.0-36.0); MEAN CORPUSCULAR VOLUME 93.8 fL (81.0-99.0); MEAN PLATELET VOLUME 11.5 fL (7.9-10.8); MONOCYTES # (AUTO) 0.6 10^3/uL (0.0-1.0); MONOCYTES % (AUTO) 10.8 %; NEUTROPHILS # (AUTO) 2.9 10^3/uL (1.5-6.6); NEUTROPHILS % (AUTO) 54.7 %; PLT - PLATELET COUNT 229 10^3/uL (130-450); RED BLOOD COUNT 4.17 10^6/uL (4.20-5.40); RED CELL DISTRIBUTION WIDTH 13.9 % (12.0-15.0); WHITE BLOOD COUNT 5.3 x10^3/uL (4.8-10.8)
[2024-02-03 14:36] LABS: ALBUMIN 4.3 g/dL (3.2-5.5); ALBUMIN/GLOBULIN RATIO 2.5 (1.0-2.2); ALKALINE PHOSPHATASE 61 IU/L (42-121); ALT ALANINE AMINOTRANSFERASE 11 IU/L (10-60); AST ASPARTATE AMINOTRANSFERASE 19 IU/L (10-42); BILIRUBIN,TOTAL 0.7 mg/dL (0.2-1.0); BUN - BLOOD UREA NITROGEN 17 mg/dL (6-20); CALCIUM 9.7 mg/dL (8.5-10.3); CARBON DIOXIDE - CO2 28 mmol/L (21-32); CHLORIDE 107 mmol/L (101-111); CHOL/HDL RATIO 3.3 (<4.4); CHOLESTEROL 232 mg/dL; CREATININE 0.8 mg/dL (0.6-1.3); GFR - MDRD 68 (>89); GLUCOSE 80 mg/dL (74-104); HDL CHOLESTEROL 71 mg/dL; LDL CHOLESTEROL,CALCULATED 142 mg/dL; POTASSIUM 3.9 mmol/L (3.5-4.5); SODIUM 141 mmol/L (135-145); TRIGLYCERIDES 97 mg/dL (48-352); VLDL CHOLESTEROL 19 mg/dL
[2024-02-03 14:46] LABS: THYROID STIMULATING HORMONE 3.22 uIU/mL (0.34-5.60)
== END 2024-02-03 10:20 | disposition home or self-care (01) ==
LOC: LAB.S 10:19
PROVIDERS: ATTEND Registered Nurse
DX: Z13.220 Encounter for screening for lipoid disorders (principal); Z79.899 Other long term (current) drug therapy; Z13.29 Encounter for screening for other suspected endocrine disorder
CPT/HCPCS: 36415; 80053; 80061; 83721; 84443; 85025